=== PATIENT | female | born 1990 | race Two or more races ===

== ENCOUNTER → 2018-08-21 | Outpatient (CLI) | payer MEDICAID ==
[2018-08-21 13:07] LABS: Basophils # (auto) 0 uL; Basophils % (auto) 0.4 % (0.0-2.0); Eosinophils # (auto) 0.1 uL; Eosinophils % (auto) 1.4 % (0.0-7.0); Hematocrit 43.2 % (36.0-46.0); Hemoglobin 14.7 g/dL (12.2-16.2); Lymphocytes # (auto) 1.6 uL; Lymphocytes % (auto) 22.3 % (10.0-50.0); Mean Corpuscular Hemoglobin 29.8 pg (28.0-32.0); Mean Corpuscular Volume 87.4 fL (80.0-100.0); Monocytes # (auto) 0.3 uL; Monocytes % (auto) 3.5 % (0.0-12.0); Neutrophils # (auto) 5.3 uL; Neutrophils % (auto) 72.4 % (37.0-80.0); Platelet Count (auto) 235 10^3/uL (140-450); Red Blood Cells 4.94 10^6/uL (4.0-5.20); Red Cell Distribution Width 13.9 % (11.8-14.3); White Blood Cell 7.4 10^3/uL (4.4-10.8)
[2018-08-21 13:46] LABS: Amphetamine Screen, Urine NEGATIVE (NEGATIVE); Barbiturate Scree,Urine NEGATIVE (NEGATIVE); Benzodiazephine Screen, Urine NEGATIVE (NEGATIVE); Cannabinoid Screen, Urine NEGATIVE (NEGATIVE); Cocaine Screen, Urine NEGATIVE (NEGATIVE); Opiate Scree,Urine NEGATIVE (NEGATIVE); Phencyclidine Screen, Urine NEGATIVE (NEGATIVE)
== END | disposition home or self-care (01) ==
LOC: LAB 11:43
PROVIDERS: ATTEND Obstetrics & Gynecology
DX: Z34.81 Encounter for supervision of other normal pregnancy, first trimester (principal); Z3A.01 Less than 8 weeks gestation of pregnancy
CPT/HCPCS: 36415; 80307; 83036; 84144; 84702; 85025; 86703; 86762; 86850; 86900; 86901; 87086; 87340

== ENCOUNTER 2019-03-21 09:51 | Observation (INO) | payer MEDICAID ==
[2019-03-21] MEDS ORDERED: CALC500C3 PO (10:21)
[2019-03-21] MEDS ORDERED: PREN29CH2 PO (10:21)
== END 2019-03-21 11:08 | disposition home or self-care (01) | DRG 566 ==
LOC: LDRP 09:51
PROVIDERS: ADMIT Obstetrics & Gynecology; ATTEND Obstetrics & Gynecology
DX: O62.9 Abnormality of forces of labor, unspecified (principal); Z3A.37 37 weeks gestation of pregnancy
CPT/HCPCS: 59025; 81002; G0378

== ENCOUNTER 2019-04-06 11:00 | Observation (INO) | payer MEDICAID ==
[~2019-04-06 11:00] MED LIST: CALC500C3 PO; PREN29CH2 PO
== END 2019-04-06 12:50 | disposition home or self-care (01) | DRG 566 ==
LOC: LDRP 11:00
PROVIDERS: ADMIT Obstetrics & Gynecology; ATTEND Obstetrics & Gynecology
DX: O48.0 Post-term pregnancy (principal); Z3A.40 40 weeks gestation of pregnancy
CPT/HCPCS: 59025; 76818; 81002; G0378

== ENCOUNTER 2019-04-08 19:02 | Observation (INO) | payer MEDICAID ==
[~2019-04-08] VITALS: Ht 160 cm; Wt 77.6 kg
== END 2019-04-08 20:20 | disposition home or self-care (01) | DRG 566 ==
LOC: LDRP 19:02
PROVIDERS: ADMIT Obstetrics & Gynecology; ATTEND Obstetrics & Gynecology
DX: O48.0 Post-term pregnancy (principal); Z3A.40 40 weeks gestation of pregnancy
CPT/HCPCS: 59025; 76818; 81002; G0378

== ENCOUNTER 2019-04-10 19:05 | Observation (INO) | payer MEDICAID ==
[~2019-04-10] VITALS: Ht 160 cm; Wt 77.6 kg
== END 2019-04-10 21:36 | disposition home or self-care (01) | DRG 566 ==
LOC: LDRP 19:05
PROVIDERS: ADMIT Obstetrics & Gynecology; ATTEND Obstetrics & Gynecology
DX: O24.419 Gestational diabetes mellitus in pregnancy, unspecified control (principal); O48.0 Post-term pregnancy; Z3A.40 40 weeks gestation of pregnancy
CPT/HCPCS: 59025; 76818; 81002; G0378

== ENCOUNTER 2019-04-12 14:07 | Observation (INO) | payer MEDICAID | END 2019-04-12 15:20 | disposition home or self-care (01) | DRG 566 | LOC: LDRP 14:07 | PROVIDERS: ADMIT Specialist; ATTEND Specialist | DX: O48.0 Post-term pregnancy (principal); Z3A.40 40 weeks gestation of pregnancy | CPT/HCPCS: 59025; 76818; 81002; G0378 ==

== ENCOUNTER 2019-04-14 20:05 | Observation (INO) | payer MEDICAID | END 2019-04-14 21:30 | disposition home or self-care (01) | DRG 566 | LOC: LDRP 20:05 | PROVIDERS: ADMIT Obstetrics & Gynecology; ATTEND Obstetrics & Gynecology | DX: O48.0 Post-term pregnancy (principal); Z3A.41 41 weeks gestation of pregnancy | CPT/HCPCS: 59025; 76818; 81002; G0378 ==

== ENCOUNTER 2019-04-15 00:15 | Inpatient (IN) | payer MEDICAID ==
[~2019-04-15] VITALS: Ht 160 cm; Wt 77.1 kg
[2019-04-15] MEDS ORDERED: PROMETHAZINE HCL 25 MG/ML 1ML IV PRN (00:45)
[2019-04-15] MEDS ORDERED: BUTORPHANOL TARTRATE 2 MG/1 ML VIAL IV PRN (00:45)
[2019-04-15] MEDS ORDERED: DERMOPLAST 60ML BOTTLE TOP PRN (00:45)
[2019-04-15] MEDS ORDERED: PHISODERM TOP SOLN 240ML BTL TOP PRN (00:45)
[2019-04-15] MEDS ORDERED: METHYLERGONOVINE MALEATE 0.2 MG/ML AMP IM PRN (00:45)
[2019-04-15] MEDS ORDERED: CARBOPROST TROMETHAMINE 250 MCG/1ML VIAL IM PRN (00:45)
[2019-04-15 02:16] LABS: Basophils # (auto) 0 uL; Basophils % (auto) 0.3 % (0.0-2.0); Eosinophils # (auto) 0.1 uL; Eosinophils % (auto) 1.2 % (0.0-7.0); Hematocrit 34.3 % (36.0-46.0); Hemoglobin 11.5 g/dL (12.2-16.2); Lymphocytes # (auto) 2.4 uL; Lymphocytes % (auto) 29.9 % (10.0-50.0); Mean Corpuscular Hemoglobin 27.7 pg (28.0-32.0); Mean Corpuscular Hgb Conc. 33.4 g/dL (32.0-36.0); Mean Corpuscular Volume 83.1 fL (80.0-100.0); Monocytes # (auto) 0.5 uL; Monocytes % (auto) 5.7 % (0.0-12.0); Neutrophils # (auto) 5.1 uL; Neutrophils % (auto) 62.9 % (37.0-80.0); Platelet Count (auto) 181 10^3/uL (140-450); Red Blood Cells 4.13 10^6/uL (4.0-5.20); Red Cell Distribution Width 15.2 % (11.8-14.3); White Blood Cell 8.1 10^3/uL (4.4-10.8)
[2019-04-15 02:23] LABS: Urine Bacteria MOD /hpf (None Seen); Urine Blood Negative /uL (Negative); Urine Mucus FEW (None Seen); Urine Specific Gravity 1.015 (1.001-1.035); Urine WBC 16 /hpf (0 - 5)
[2019-04-15 02:31] LABS: BUN/Creatinine Ratio 15.3; Calcium 8.1 mg/dL (8.5-10.1); Potassium 3.6 mmol/L (3.5-5.1)
[2019-04-15 02:33] LABS: INR < 0.93 (0.9-1.15); Partial Thromboplastin Time 27.1 sec (23.64-32.05)
[2019-04-15 02:34] LABS: Bilirubin, Total 0.3 mg/dL (0.2-1.0); Total Protein 6.2 g/dL (6.4-8.2)
[2019-04-15] MEDS ORDERED: LIDOCAINE 2%HCL (LOCAL ANESTH.) INJ 20ML MDV ID ONE (02:40)
[2019-04-15] MEDS ORDERED: LACT. RINGERS/OXYTOCIN 20UNITS 1,000 ML IV SCH ×2 (02:40→07:05)
[2019-04-15] MEDS ORDERED: WITCH HAZEL-GLYCERIN PAD TOP PRN (02:40)
[2019-04-15] MEDS: LACTATED RINGER'S 1,000 ML IV SCH ×3 (02:50→07:30)
[2019-04-15] MEDS ORDERED: TERBUTALINE SULFATE 1 MG/ML 1ML VIAL SC ONE (07:15)
[2019-04-15] MEDS ORDERED: LACT. RINGERS/OXYTOCIN 20UNITS 500 ML IV ONE (14:57)
[2019-04-15] MEDS ORDERED: ACETAMINOPHEN 325 MG TAB PO PRN (15:00)
[2019-04-15] MEDS ORDERED: METHYLERGONOVINE MALEATE 0.2 MG/ML AMP IM ONE (15:00)
--- NOTE | 2019-04-15 17:00 | NUR ---
Ambulation: Patient OOB with standby assistance by RN. Patient ambulated to bathroom with steady gait. Patient able to void without difficulty. [facility] teaching provided with returned demonstration by patient. Clean gown provided and bed linen changed. Patient ambulated back to bed with steady gait and no distress noted.
--- NOTE | 2019-04-15 18:30 | NUR ---
Ambulation: Patient OOB independently, ambulated to bathroom with steady gait. Patient able to void without difficulty. ICE/TUCKS/SPRAY provided, and Peric[facility] teaching reinforced. Clean gown provided and bed linen changed. Patient ambulated back to bed with steady gait and no distress noted.
[2019-04-15 19:00] VITALS: BP 90/53
--- NOTE | 2019-04-15 19:00 | NUR ---
IV removal IV DC'd with sterile technique, catheter fully intact. Pressure dressing applied to site. Patient tolerated procedure well.
[2019-04-15] MEDS: IBUPROFEN 600 MG TAB PO PRN (19:33)
[2019-04-15 23:00] VITALS: BP 98/52
--- NOTE | 2019-04-16 01:30 | NUR ---
This RN relinquished care to Gisella ISBELL.
--- NOTE | 2019-04-16 01:31 | NUR ---
Received report and assumed care of patient. Patient awake , alert and oriented , ambulatory. Denies pain and discomfort at this time. Patient instructed to call for assist if needed and verbalized understanding.Will continue to monitor .
[2019-04-16] MEDS: IBUPROFEN 600 MG TAB PO PRN ×2 (01:37→11:09)
--- NOTE | 2019-04-16 01:37 | NUR ---
Pain: Patient called c/o aching pain in the perineal area. Pain scale 5/10. Motrin 600 mg PO given for pain.
--- NOTE | 2019-04-16 02:37 | NUR ---
Re-assessment: Patient stated that pain relieved a. Pain scale 3/10. Will continue to monitor.
[2019-04-16 03:00] VITALS: BP 92/46
[2019-04-16 07:06] LABS: RPR Non Reactive (Non Reactive)
[2019-04-16 07:10] VITALS: BP 81/48
[2019-04-16 11:10] VITALS: BP 87/52
[2019-04-16 15:15] VITALS: BP 86/44
--- NOTE | 2019-04-16 16:30 | NUR ---
Discharge: Discharge instructions given as ordered. Pt encouraged to follow up with DISPOSITION CLERK as instructed. All questions and concerns addressed. Patient verbalized understanding. Medication reconciliation completed and copy given to patient. All required/requested vaccines given and copies of vaccinations given to patient. Patient encouraged to prepare to depart unit.
--- NOTE | 2019-04-16 17:25 | NUR ---
Discharge: Patient ambulated to vehicle with all personal belongings, accompanied by staff and family member. No distress noted at time of departure, no adverse changes in status since initial assessment.
== END 2019-04-16 17:25 | disposition home or self-care (01) | DRG 560 ==
LOC: LDRP 00:15
PROVIDERS: ADMIT Obstetrics & Gynecology; ATTEND Obstetrics & Gynecology
PROC: 10E0XZZ Delivery of Products of Conception, External Approach (ICD-10-PCS; principal; 2019-04-15)
PROC: 0UQMXZZ Repair Vulva, External Approach (ICD-10-PCS; 2019-04-15)
PROC: 0HQ9XZZ Repair Perineum Skin, External Approach (ICD-10-PCS; 2019-04-15)
DX: O48.0 Post-term pregnancy (principal); O71.5 Other obstetric injury to pelvic organs; O69.81X0 Labor and delivery complicated by cord around neck, without compression, not applicable or unspecified; O70.0 First degree perineal laceration during delivery; O71.82 Other specified trauma to perineum and vulva; Z37.0 Single live birth; Z3A.41 41 weeks gestation of pregnancy
CPT/HCPCS: 36415; 59025; 59409; 76818; 80053; 81001; 81002; 84112; 85025; 85610; 85730; 86592; 86850; 86900; 86901; 96361; 96366; G0378; J2590

== ENCOUNTER 2020-09-17 19:36 | Emergency (ER) | payer BC, MEDICAID ==
[~2020-09-17] VITALS: Ht 160 cm; Wt 86.2 kg
[2020-09-17 22:10] LABS: Basophils # (auto) 0 10 ^3/uL (0-0.2); Basophils % (auto) 0.3 % (0.0-2.0); Eosinophils # (auto) 0.3 10 ^3/uL (0-0.8); Eosinophils % (auto) 3.4 % (0.0-7.0); Hematocrit 43.2 % (36.0-46.0); Hemoglobin 14.7 g/dL (12.2-16.2); Lymphocytes # (auto) 2.5 10 ^3/uL (0.4-5.4); Mean Corpuscular Hemoglobin 29.7 pg (28.0-32.0); Mean Corpuscular Hgb Conc. 34.1 g/dL (32.0-36.0); Mean Corpuscular Volume 86.9 fL (80.0-100.0); Monocytes # (auto) 0.4 10 ^3/uL (0-1.3); Monocytes % (auto) 4.4 % (0.0-12.0); Neutrophils % (auto) 60.9 % (37.0-80.0); Red Blood Cells 4.97 10^6/uL (4.0-5.20); Red Cell Distribution Width 13.6 % (11.8-14.3); White Blood Cell 8.2 10^3/uL (4.4-10.8)
[2020-09-17 22:27] LABS: Albumin 4.1 g/dL (3.4-5.0); Calcium 8.8 mg/dL (8.5-10.1); Potassium 3.5 mmol/L (3.5-5.1)
[2020-09-17 22:32] LABS: BUN/Creatinine Ratio 18.4; Bilirubin, Total 0.2 mg/dL (0.2-1.0); Total Protein 7.7 g/dL (6.4-8.2)
[2020-09-17 22:53] LABS: INR 0.96 (0.9-1.15)
[2020-09-17 22:57] LABS: Magnesium 2.1 mg/dL (1.6-2.6)
[2020-09-18] MEDS ORDERED: ALUM & MAG HYDROX-SIMETH LIQ(MAALOX) 30 ML PO ONE (00:45)
[2020-09-18] MEDS ORDERED: FAMOTIDINE (10MG/ML) 2ML VL IV ONE (00:45)
[2020-09-18] MEDS ORDERED: LIDOCAINE VISCOUS 2% 15ML UD MT ONE (03:00)
[2020-09-18] MEDS ORDERED: DONNATAL 5ml ORAL Elix (BELLADONNA ALK-PHENOBARB) PO ONE (03:00)
[2020-09-18 05:52] VITALS: BP 112/77
== END 2020-09-18 05:53 | disposition home or self-care (01) ==
LOC: ER 19:36
DX: K21.9 Gastro-esophageal reflux disease without esophagitis (principal); J45.909 Unspecified asthma, uncomplicated; Z20.822 Contact with and (suspected) exposure to COVID-19; Z79.899 Other long term (current) drug therapy
CPT/HCPCS: 36415; 71045; 80053; 81025; 83605; 83690; 83735; 84484; 85025; 85610; 87426; 93005; 96374; 99285; J3490

== ENCOUNTER → 2023-09-25 | Outpatient (CLI) | payer BC ==
[2023-09-25 13:12] LABS: Basophils # (auto) 0 10 ^3/uL (0-0.2); Basophils % (auto) 0.4 % (0.0-2.0); Eosinophils # (auto) 0.2 10 ^3/uL (0-0.8); Eosinophils % (auto) 2.3 % (0.0-7.0); Hematocrit 39.1 % (36.0-46.0); Hemoglobin 13.1 g/dL (12.2-16.2); Lymphocytes # (auto) 2.2 10 ^3/uL (0.4-5.4); Mean Corpuscular Hemoglobin 29.4 pg (28.0-32.0); Mean Corpuscular Hgb Conc. 33.4 g/dL (32.0-36.0); Mean Corpuscular Volume 87.9 fL (80.0-100.0); Monocytes # (auto) 0.4 10 ^3/uL (0-1.3); Monocytes % (auto) 5.5 % (0.0-12.0); Neutrophils # (auto) 5.2 10 ^3/uL (1.6-8.6); Neutrophils % (auto) 64.8 % (37.0-80.0); Nucleated Red Blood Cells % 0.1 %; Red Blood Cells 4.45 10^6/uL (4.0-5.20); Red Cell Distribution Width 15.5 % (11.8-14.3)
[2023-09-26 06:06] LABS: RPR Non Reactive (Non Reactive)
[2023-09-27 00:06] LABS: Chlamydia Trachomatis, NAA Negative (Negative); Neisseria gonorrhoeae, NAA Negative (Negative)
== END | disposition home or self-care (01) ==
LOC: LAB 12:58
PROVIDERS: ATTEND Obstetrics & Gynecology
DX: Z34.80 Encounter for supervision of other normal pregnancy, unspecified trimester (principal); Z3A.00 Weeks of gestation of pregnancy not specified
CPT/HCPCS: 36415; 83036; 85025; 86592

== ENCOUNTER 2023-10-17 10:25 | Observation (INO) | payer BC | END 2023-10-17 12:23 | disposition home or self-care (01) | LOC: UNDOADMOB 10:25 → LDRP 10:25 | PROVIDERS: ADMIT Obstetrics & Gynecology; ATTEND Obstetrics & Gynecology | DX: O48.0 Post-term pregnancy (principal); Z3A.40 40 weeks gestation of pregnancy | CPT/HCPCS: 59025; 76818; 81002; G0378 ==

== ENCOUNTER 2023-10-18 21:09 | Inpatient (IN) | payer BC ==
[~2023-10-18] VITALS: Ht 160 cm; Wt 89.8 kg
[2023-10-18] MEDS ORDERED: BUTORPHANOL TARTRATE 2 MG/1 ML VIAL IV PRN ×2 (21:30)
[2023-10-18] MEDS ORDERED: LIDOCAINE 2%HCL (LOCAL ANESTH.) INJ 20ML MDV IJ PRN (21:30)
[2023-10-18 21:54] LABS: Basophils # (auto) 0 10 ^3/uL (0-0.2); Basophils % (auto) 0.3 % (0.0-2.0); Eosinophils # (auto) 0.1 10 ^3/uL (0-0.8); Eosinophils % (auto) 1.2 % (0.0-7.0); Hematocrit 40.5 % (36.0-46.0); Hemoglobin 13.4 g/dL (12.2-16.2); Lymphocytes # (auto) 1.7 10 ^3/uL (0.4-5.4); Mean Corpuscular Hemoglobin 28.7 pg (28.0-32.0); Monocytes # (auto) 0.4 10 ^3/uL (0-1.3); Monocytes % (auto) 5.1 % (0.0-12.0); Neutrophils # (auto) 5.3 10 ^3/uL (1.6-8.6); Neutrophils % (auto) 70.4 % (37.0-80.0); Red Blood Cells 4.65 10^6/uL (4.0-5.20); Red Cell Distribution Width 15.1 % (11.8-14.3); White Blood Cell 7.5 10^3/uL (4.4-10.8)
[2023-10-18 22:08] LABS: INR 0.97 (0.9-1.15); Partial Thromboplastin Time 28.3 SEC (24.5-34.5); Prothrombin Time 10.2 sec (9.3-11.8)
[2023-10-18] MEDS: PHISODERM TOP SOLN 240ML BTL TOP PRN (22:11)
[2023-10-18] MEDS: WITCH HAZEL-GLYCERIN PAD TOP PRN (22:11)
[2023-10-18] MEDS: DERMOPLAST 60ML BOTTLE TOP PRN (22:11)
[2023-10-18 22:12] LABS: Alanine Aminotransferase 11 U/L (7-40); Albumin 3.8 g/dL (3.2-4.8); Alkaline Phosphatase 182 U/L (46-116); Anion Gap 8 (5-15); Aspartate Aminotransferase 13 U/L (13-40); BUN/Creatinine Ratio 11.3 (10.0-20.0); Bilirubin, Total 0.5 mg/dL (0.2-1.0); Blood Urea Nitrogen 9 mg/dL (9-23); Carbon Dioxide 22 mmol/L (20-30); Chloride 108 mmol/L (98-107); Glucose 110 mg/dL (74-106); Potassium 3.5 mmol/L (3.5-5.1); Sodium 138 mmol/L (136-145); Total Protein 6.1 g/dL (5.7-8.2)
[2023-10-18] MEDS: LACTATED RINGER'S 1,000 ML IV SCH (22:12)
[2023-10-18] MEDS: miSOPROStol 50 MCG per PRE-CUT 1/2 TAB PO PRN (22:14)
[2023-10-18 22:16] LABS: Amphetamine Screen, Urine Neg (NEGATIVE); Barbiturate Scree,Urine Neg (NEGATIVE); Benzodiazephine Screen, Urine Neg (NEGATIVE); Cannabinoid Screen, Urine Neg (NEGATIVE); Cocaine Screen, Urine Neg (NEGATIVE); Opiate Scree,Urine Neg (NEGATIVE); Phencyclidine Screen, Urine Neg (NEGATIVE); Urine Bacteria FEW /hpf (None Seen); Urine Blood Negative /uL (Negative); Urine Clarity Turbid (Clear); Urine Color Yellow (Yellow); Urine Mucus MODERATE (None Seen); Urine Protein, UAD 1+ (Negative); Urine Sperm PRESENT /hpf (None Seen); Urine Urobilinogen Normal (Negative); Urine WBC 5 /hpf (0 - 5)
[2023-10-19] MEDS: LIDOCAINE HCL 2 %PF INJ 10ML AMP IJ ONE (08:00)
[2023-10-19] MEDS: fentaNYL CITRATE 100 MCG/2 ML VL IV ONE (08:00)
[2023-10-19] MEDS: NALOXONE HCL 0.4 MG/ML VIAL IV ONE (08:00)
[2023-10-19] MEDS: ePHEDrine SULFATE 50 MG/ML AMP IV ONE (08:00)
[2023-10-19] MEDS: CARBOPROST TROMETHAMINE 250 MCG/1ML VIAL IM ONE (08:15)
[2023-10-19] MEDS ORDERED: miSOPROStol 100 mcg TAB SL PRN (08:15)
[2023-10-19] MEDS ORDERED: miSOPROStol 100 mcg TAB PR PRN (08:15)
[2023-10-19] MEDS ORDERED: TERBUTALINE SULFATE 1 MG/ML 1ML VIAL SC PRN (08:15)
[2023-10-19] MEDS: LACT. RINGERS/OXYTOCIN 20UNITS 1,000 ML IV SCH (09:28)
[2023-10-19] MEDS: ROPIVACAINE HCL 200 ML ONE (09:32)
[2023-10-19] MEDS: DIPHENOXYLATE W/ATROPINE 2.5 MG TAB PO SCH (10:00)
[2023-10-19] MEDS: ONDANSETRON HCL 4 MG/2 ML VIAL IV PRN (13:28)
[2023-10-19] MEDS: FAMOTIDINE (10MG/ML) 2ML VL IV ONE (14:45)
[2023-10-19] MEDS ORDERED: ACETAMINOPHEN 325 MG TAB PO PRN (16:30)
[2023-10-19] MEDS: METHYLERGONOVINE MALEATE 0.2 MG/ML AMP IM PRN (16:37)
[2023-10-19] MEDS: LACT. RINGERS/OXYTOCIN 20UNITS 500 ML IV ONE ×2 (17:49→17:50)
[2023-10-19 19:00] VITALS: BP 138/75; PULSE 64; RESP 17; TEMP 98.7; O2SAT 98
[2023-10-20 03:11] VITALS: BP 108/56; PULSE 58; RESP 16; TEMP 98.2
[2023-10-20 07:00] VITALS: BP 100/57; PULSE 69; RESP 16; TEMP 98; O2SAT 97
[2023-10-20 07:06] LABS: RPR Non Reactive (Non Reactive)
[2023-10-20] MEDS ORDERED: DOCU-94 PO (08:13)
[2023-10-20 11:00] VITALS: BP 104/57; PULSE 67; RESP 16; TEMP 98; O2SAT 97
[2023-10-20] MEDS ORDERED: IBUPROFEN 600 MG TAB PO ONE (11:31)
[2023-10-20] MEDS: IBUPROFEN 600 MG TAB PO PRN (11:33)
[2023-10-20 15:00] VITALS: BP 106/56; PULSE 75; RESP 16; TEMP 97.8; O2SAT 96
[2023-10-22 19:06] LABS: Treponema pallidum Ab (FTA-Ab) Non Reactive (Non Reactive)
== END 2023-10-20 16:57 | disposition home or self-care (01) | DRG 807 ==
LOC: LDRP 21:09
PROVIDERS: ADMIT Obstetrics & Gynecology; ATTEND Obstetrics & Gynecology
PROC: 10E0XZZ Delivery of Products of Conception, External Approach (ICD-10-PCS; principal; 2023-10-19)
PROC: 3E0R3BZ Introduction of Anesthetic Agent into Spinal Canal, Percutaneous Approach (ICD-10-PCS; 2023-10-19)
PROC: 00HU33Z Insertion of Infusion Device into Spinal Canal, Percutaneous Approach (ICD-10-PCS; 2023-10-19)
DX: O48.0 Post-term pregnancy (principal); Z37.0 Single live birth; Z3A.40 40 weeks gestation of pregnancy; K76.0 Fatty (change of) liver, not elsewhere classified; J45.909 Unspecified asthma, uncomplicated
CPT/HCPCS: 36415; 59025; 59200; 59409; 62282; 80053; 80307; 81001; 85025; 85610; 85730; 86592; 86850; 86900; 86901; 94760; 96360; 96361; 96365; 96366; 96372; G0378; J2405; J2590; J3490